=== PATIENT | male | born 1950 | race Caucasian/White ===

== ENCOUNTER 2023-05-15 15:41 | Emergency (ER) | payer MEDICARE, OTHER, SELFPAY ==
[2023-05-15 15:42] VITALS: BP 178/81; PULSE 69; RESP 16; TEMP 36.3; O2SAT 98; BMI 42.6
--- NOTE | 2023-05-15 16:04 | ED.RN ---
CALLED FOR EKG 1547
[2023-05-15 16:11] LABS: Absolute Lymphocyte Count 1.25 X10^3/uL (0.83-4.51); Absolute Neutrophil Count 2.6 X10^3/uL (2.0-7.7); Basophil# 0.03 X10^3/uL; Basophil% 0.6 % (0-1); Eosinophil# 0.22 X10^3/uL; Eosinophils% 4.7 % (0-5); Hematocrit 43.2 % (40-54); Lymphocyte # 1.25 X10^3/ul (0.83-4.51); Lymphocyte % 26.5 % (19-41); Mean Corp Hgb Conc 32.4 g/dL (32-36); Mean Corpuscular Hgb 30.1 pg (27.0-32.0); Mean Corpuscular Volume 92.9 fL (80-94); Mean Platelet Vol. 9.4 fl (6.2-12.0); Monocyte# 0.56 X10^3/uL; Monocyte% 11.9 % (0-10); NRBC Flagged by Analyzer 0 % (0-5); Neutrophil # 2.64 X10^3/uL (2.7-7.7); Neutrophil % 55.9 % (47-70); Platelet Count 192 K/mm3 (150-450); RBC Distribution Width CV 13.3 % (11.6-14.6); RBC Distribution Width SD 45.5 fl (35.1-43.9); Red Blood Count 4.65 M/mm3 (4.6-6.2); White Blood Count 4.7 K/mm3 (4.4-11.0)
[2023-05-15 16:19] LABS: International Normalized Ratio 1.1; Partial Thromboplast Time 31.6 Seconds (24.1-36.2)
[2023-05-15 16:31] LABS: Anion Gap 4 (5-15); BUN 22 mg/dL (7-18); BUN/Creat Ratio 20.2 RATIO (10-20); Calcium,Total 9.2 mg/dL (8.5-10.1); Chloride 109 mmol/L (98-107); Creatinine, Serum 1.09 mg/dL (0.70-1.30); EST Glomerular Filtration Rate 70 mL/min (>60); Est Glom Filt Rate - Afr Amer 85 mL/min (>60); Estimated Creatinine Clearance 78.46 ml/min; Glucose 100 mg/dL (74-106); Potassium 4.1 mmol/L (3.5-5.1); Sodium Level 139 mmol/L (136-145)
--- NOTE | 2023-05-15 17:22 | RAD_ITS ---
STUDY: X-RAY CHEST REASON FOR EXAM: Male, 72 years old. Stroke TECHNIQUE: Single AP portable view of the chest. COMPARISON: None. FINDINGS: The lungs are clear and expanded. There is no demonstrated pleural abnormality. Normal size heart. Normal mediastinum and manuel. Normal visualized pulmonary arteries. Normal visualized aortic arch and descending thoracic aorta. Normal visualized thoracic spine. Normal visualized ribs, clavicles, and shoulders. There is no demonstrated abnormality of the visualized soft tissue structures of the upper abdomen. RAD/Chest 1 View (Portable) IMPRESSION: No evidence of acute cardiopulmonary process. Electronically Signed: Milton Gomes DO at 17:45 EST ,
--- NOTE | 2023-05-15 19:06 | CT_ITS ---
STUDY: CT BRAIN WITHOUT CONTRAST REASON FOR EXAM: Male, 72 years old. dizziness RADIATION DOSAGE (If Supplied By Facility): CTDIvol = ( 47.06 ) mGy, DLP = ( 907.97 ) mGycm TECHNIQUE: Transaxial CT imaging of the brain was performed without administration of intravenous contrast material. Individualized dose optimization techniques were used for this CT. COMPARISON: No relevant priors. FINDINGS: Normal soft tissue structures. Normal calvarium. Normal size ventricles and extra-axial spaces for the patient''s age. Normal white matter tracts of the cerebral hemispheres. Prominent perivascular space or old lacunar infarct in the right basal ganglia. Normal thalami. Normal brainstem. Normal cerebellum. There is no intracranial hemorrhage. There are no findings of an acute ischemic infarction. Mild mucosal thickening of the visualized paranasal sinuses. CT/Brain/Head without Contrast IMPRESSION: No acute intracranial pathology of the brain. Electronically Signed: Dieudonne Varela DO at 19:56 EST ,
--- NOTE | 2023-05-15 19:27 | EX.ED.DYSGE1 ---
HPI <FERMIN Hooks - Last Filed: 05/15/23 20:46> History of Present Illness Chief Complaint: Dizziness Narrative Narrative: Patient is a 72-year-old male with history of prostate cancer, hypertension, vertigo presents to the emergency department for 3 days of generalized feeling of woozy . Patient states that it is episodic, he states does not matter what he does, this is comes on as an episode. When it comes on, he feels unsteady, feeling of wooziness however no room spinning, no nausea, no vomiting. Patient denies any upper or lower extremities weakness. Patient denies any patient denies any recent falls. He did go to the urgent care clinic today who referred him here for CT scan of the brain. This has been going on and off for the last 3 days PFS <FERMIN Hooks - Last Filed: 05/15/23 20:46> [facility] Medical History (Updated 05/15/23 @ 20:44 by FERMIN Hooks) HTN (hypertension) Osteoarthritis of right knee Prostate cancer Vertigo Home Medications lisinopril 5 mg tablet 5 mg PO DAILY 05/15/23 [History Last Taken Unknown] meclizine 25 mg chewable tablet (Antivert) 25 mg PO TID PRN Dizines #20 tabs 05/15/23 [Rx Last Taken Unknown] tamsulosin 0.4 mg capsule (Flomax) 0.4 mg PO DAILY 05/15/23 [History Last Taken Unknown] Allergy/AdvReac Type Severity Reaction Status Date / Time No Known Allergies Allergy Verified 05/15/23 15:44 Surgical History History of cholecystectomy Social History Smoking Status: Former smoker ROS <FERMIN Hooks - Last Filed: 05/15/23 20:46> ROS ED ROS Narrative Constitutional: Negative for fever, chills, weight loss, weakness Eyes: Negative for vision loss, vision change, double vision ENT: Negative for any sore throat, ear pain, congestion Cardiovascular: Negative for any chest pain, tightness, palpitations Respiratory: Negative for any cough, sputum production, hemoptysis, dyspnea, dyspnea on exertion, orthopnea Gastrointestinal: Negative for any abdominal pain, nausea, vomiting, diarrhea, constipation, blood in stool, blood in vomit : Negative for any urinary frequency, dysuria, retention, blood in urine Muscle skeletal: Negative for any myalgias, arthralgias, neck pain, back pain Neurological: Negative for any headache, syncope, paresthesias. Positive for feeling of woozy , unsteadiness, imbalance Skin: Negative for any rashes, lumps, itching, abrasions, lacerations Psychiatric: Negative for any depression, anxiety, stress, suicidal ideation, homicidal ideation Hematologic: Negative for any easy bruising, excessive bruising, easy bleeding Allergies: Negative for any eczema, hives, rash EXAM <Andrew EncisoFERMIN cooper - Last Filed: 05/15/23 20:46> Physical Exam Narrative Exam Narrative: Vital signs reviewed. Patient is in no obvious distress. Patient asymptomatic. HEET: Head normocephalic atraumatic, TMs clear bilaterally. Posterior pharynx is clear, moist mucous membranes. Nares clear bilaterally. Pupils are equal round reactive to light. Negative for any nystagmus. Neck: Supple with no lymphadenopathy or tenderness. No signs of meningismus. Cardiac: Regular rate and rhythm no murmurs gallops or rubs, equal peripheral pulses bilaterally. Respiratory: Lungs clear to auscultation bilaterally. No chest tenderness. Abdomen: Soft, nontender, nondistended. No abdominal bruit or pulsatile masses. No hepatosplenomegaly Extremities: No peripheral edema, no signs of gross trauma or deformity. Active full range of motion of all extremities. Neuro: Cranial nerves II through XII intact, no focal neurological deficits. NIH stroke score is 0. I did have the patient ambulate, patient had no ataxic gait, patient was stable. Skin: Clean dry and intact with no rash, purpura, petechiae, vesicles or pustules. Backs/flank: No CVA tenderness, no midline spinal tenderness, no deformity. Psych: Normal mood and affect. No SI, HI or acute psychosis. Const Vital Signs: 05/15/23 15:42 05/15/23 15:47 05/15/23 19:39 Temperature 97.4 F L Temperature Source Temporal Pulse Rate 69 80 Respiratory Rate 16 16 Respiratory Effort Respiratory Pattern Blood Pressure 178/81 H 135/82 H Blood Pressure Mean 113 99 Pulse Ox 98 94 Oxygen Delivery Method Room Air Room Air Room Air 05/15/23 19:39 Temperature Temperature Source Pulse Rate Respiratory Rate Respiratory Effort Normal Respiratory Pattern Normal Blood Pressure Blood Pressure Mean Pulse Ox Oxygen Delivery Method <Dr. Chico Diego MD - Last Filed: 05/15/23 20:49> Physical Exam Const Vital Signs: 05/15/23 15:42 05/15/23 15:47 05/15/23 19:39 Temperature 97.4 F L Temperature Source Temporal Pulse Rate 69 80 Respiratory Rate 16 16 Respiratory Effort Respiratory Pattern Blood Pressure 178/81 H 135/82 H Blood Pressure Mean 113 99 Pulse Ox 98 94 Oxygen Delivery Method Room Air Room Air Room Air 05/15/23 19:39 Temperature Temperature Source Pulse Rate Respiratory Rate Respiratory Effort Normal Respiratory Pattern Normal Blood Pressure Blood Pressure Mean Pulse Ox Oxygen Delivery Method MDM <FERMIN Hooks - Last Filed: 05/15/23 20:46> [facility] Lab Data Labs: Laboratory Results - last 24 hr 05/15/23 16:01 WBC 4.7 RBC 4.65 Hgb 14.0 Hct 43.2 MCV 92.9 MCH 30.1 MCHC 32.4 RDW Std Deviation 45.5 H RDW Coeff of Susana 13.3 Plt Count 192 MPV 9.4 Immature Gran % (Auto) 0.400 Neut % (Auto) 55.9 Lymph % (Auto) 26.5 [place] % (Auto) 11.9 H Eos % (Auto) 4.7 Baso % (Auto) 0.6 Absolute Neuts (auto) 2.6 Absolute Lymphs (auto) 1.25 Nucleated RBC % 0 PT 14.0 INR 1.1 APTT 31.6 Sodium 139 Potassium 4.1 Chloride 109 H Carbon Dioxide 26.0 Anion Gap 4 L BUN 22 H Creatinine 1.09 Estim Creat Clear Calc 78.46 Est GFR (MDRD) Af Amer 85 Est GFR (MDRD) Non-Af 70 BUN/Creatinine Ratio 20.2 H Glucose 100 Calcium 9.2 Radiography Diagnostic Testing: Clinical Impression(s) from Imaging Studies Chest X-Ray 05/15/23 17:22 IMPRESSION: No evidence of acute cardiopulmonary process. Electronically Signed: Milton Gomes DO at 17:45 EST , Brain CT 05/15/23 19:06 IMPRESSION: No acute intracranial pathology of the brain. Electronically Signed: Dieudonne Varela DO at 19:56 EST , Treatment and Re-Evaluation :: Patient appears generally well, patient appears nontoxic, vital signs are stable. Presenting to the emergency department with complaints of a wooziness . Differential diagnose includes benign positional vertigo, intracranial bleeding, CVA, TIA, orthostatic hypotension. Patient's physical examination was grossly unremarkable. Patient states that this is episodic . I walked the patient down the hallway, patient had no episodes, patient had a stable gait, negative for ataxia. Denies stroke score 0. Patient received a CT scan of the brain. Patient's chest x-ray showed no evidence of acute cardiopulmonary process. Patient's laboratory values were normal CBC, PT/INR was unremarkable, patient's chemistries were unremarkable. Patient CT scan of the brain shows no acute intracranial pathology of the brain. On reevaluation, patient is asymptomatic. At this time, there is no evidence of any acute neurological abnormality. I do believe that this is positional, this is some sort of vertigo. Patient is completely asymptomatic when sitting still. There is a motion component to this. At this time, patient be given a prescription for Antivert, he will follow-up outpatient. Instructed return for any worsening symptoms. <Dr. Chico Diego MD - Last Filed: 05/15/23 20:49> [facility] Narrative Medical decision making narrative: I have personally performed a face to face assessment of the patient and have reviewed the REILLY Note. I performed a substantive portion of the visit including all aspects of the following. My lawler findings include: History: Patient presents with intermittent episodes with he describes as wooziness for couple days. They do tend to be initiated by motion or bending over. He does not feel presyncopal. He states it is not true vertigo. It only lasts for a brief moment. But he just feels a little wobbly. He states it is not at all debilitating and it is mild but he just was not sure what the cause was. He has had vertigo but normally that lasts for a while for him. Exam: Patient has stable gait normal speech normal neuroexam. Lungs are clear. Heart is regular. Abdomen is obese but benign. No symptoms were able to be reproduced with motion here Medical Decision Making: Patient's CBC is normal. His electrolytes show no marked abnormalities. CT scan is normal. Chest x-ray is normal. He feels well. We did discuss giving him Antivert in case he has further symptoms. He was happy with that. He would prefer to go home. Lab Data Attestation: I reviewed the patient's lab results. Labs: Laboratory Results - last 24 hr 05/15/23 16:01 WBC 4.7 RBC 4.65 Hgb 14.0 Hct 43.2 MCV 92.9 MCH 30.1 MCHC 32.4 RDW Std Deviation 45.5 H RDW Coeff of Susana 13.3 Plt Count 192 MPV 9.4 Immature Gran % (Auto) 0.400 Neut % (Auto) 55.9 Lymph % (Auto) 26.5 [place] % (Auto) 11.9 H Eos % (Auto) 4.7 Baso % (Auto) 0.6 Absolute Neuts (auto) 2.6 Absolute Lymphs (auto) 1.25 Nucleated RBC % 0 PT 14.0 INR 1.1 APTT 31.6 Sodium 139 Potassium 4.1 Chloride 109 H Carbon Dioxide 26.0 Anion Gap 4 L BUN 22 H Creatinine 1.09 Estim Creat Clear Calc 78.46 Est GFR (MDRD) Af Amer 85 Est GFR (MDRD) Non-Af 70 BUN/Creatinine Ratio 20.2 H Glucose 100 Calcium 9.2 Radiography Diagnostic Testing: Clinical Impression(s) from Imaging Studies Chest X-Ray 05/15/23 17:22 IMPRESSION: No evidence of acute cardiopulmonary process. Electronically Signed: Milton Gomes DO at 17:45 EST , Brain CT 05/15/23 19:06 IMPRESSION: No acute intracranial pathology of the brain. Electronically Signed: Dieudonne Varela DO at 19:56 EST , Discharge Plan Triage Chief Complaint: Dizziness ED Midlevel Provider: Andrew Torres ED Provider: Chico Diego Dx/Rx/DC Orders Clinical Impression: Vertigo Instructions: ED Dizziness, Uncertain Cause, ED Vertigo, Unspecified Prescriptions: New meclizine [Antivert] 25 mg tablet,chewable 25 mg PO TID PRN (Reason: Dizines) Qty: 20 0RF No Action lisinopril 5 mg tablet 5 mg PO DAILY tamsulosin [Flomax] 0.4 mg capsule 0.4 mg PO DAILY Primary Care Provider: KAREN GU Referrals: [facility] Doctor,Out of [Non-Staff] - Activity Restrictions/Additional Instructions: Please follow-up outpatient. Return for any worsening symptoms Disposition Disposition: Home, Self Care
[2023-05-15 19:39] VITALS: BP 135/82; PULSE 80; RESP 16; O2SAT 94
[2023-05-15 20:49] VITALS: BP 141/90; PULSE 58; RESP 16; O2SAT 95
== END 2023-05-15 20:50 | disposition home or self-care (01) ==
LOC: ED 20:46
PROVIDERS: Emergency Provider Emergency Medicine; Visit Provider Emergency Medicine
DX: R42 Dizziness and giddiness (principal); I10 Essential (primary) hypertension; Z87.891 Personal history of nicotine dependence; Z79.899 Other long term (current) drug therapy; Z85.46 Personal history of malignant neoplasm of prostate
CPT/HCPCS: 70450; 71045; 80048; 85025; 85610; 85730; 93005; 99284